=== PATIENT | female | born 1955 | race Caucasian/White ===

== ENCOUNTER 2024-01-10 10:59 | Emergency (ER) | payer MEDICARE, SELFPAY ==
[2024-01-10] VITALS (7 sets, daily range): BP systolic 114–145; BP diastolic 62–72; PULSE 79–101; RESP 12–20; TEMP 36.4–36.6; O2SAT 93–96
--- NOTE | ~2024-01-10 | XR_ITS ---
XR abdomen/kub 1V Ordering provider: Melo Ambrose MD History: . left 3mm stone, mid ureter . Comparison: None. FINDINGS: BOWEL: Nonobstructive bowel gas pattern. ORGANOMEGALY: None. Status post cholecystectomy. SIGNIFICANT PATHOLOGIC CALCIFICATIONS: None. OTHER: No free air is seen under the diaphragm. Degenerative spine. IMPRESSION: NO ACUTE ABDOMINAL FINDINGS. Reviewed, dictated and finalized at location A.
[2024-01-10 11:54] LABS: Basophils Absolute Auto 0.1 K/mm3 (0.0-0.1); Basophils Percent Auto 0.5 % (0.2-1.2); Eosinophils Absolute Auto 0.1 K/mm3 (0-0.3); Eosinophils Percent Auto 1.2 % (0-4.4); Hematocrit 37.9 % (37.0-47.0); Hemoglobin 12.3 g/dL (12.0-15.0); Immature Granulocyte Absolute 0.02 K/mm3 (0.00-0.031); Immature Granulocyte Percent A 0.2 % (0-0.5); Lymphocytes Absolute Auto 1.31 K/mm3 (0.9-3.2); Lymphocytes Percent Auto 11.9 % (18.3-44.2); Mean Corpuscular HGB Conc 32.5 g/dl (32-36); Mean Corpuscular Hemoglobin 29.4 pg (26-34); Mean Corpuscular Volume 90.5 fl (80-100); Mean Platelet Volume 10.5 fl (7.4-10.4); Monocytes Absolute Auto 1.3 K/mm3 (0.1-0.6); Monocytes Percent Auto 11.5 % (2.6-8.5); Neutrophils Absolute Auto 8.2 K/mm3 (1.3-6.7); Neutrophils Percent Auto 74.7 % (45.5-73.1); Platelet Count Result 214 k/mm3 (150-375); Red Blood Count 4.19 M/mm3 (4.2-5.4); Red Cell Distribution Width 15.2 % (11.5-14.5)
[2024-01-10 12:11] LABS: Anion Gap 7 mmol/L (4-12); Blood Urea Nitrogen 19 mg/dL (7-17); Calcium 8.9 mg/dL (8.4-10.2); Carbon Dioxide 26 mmol/L (22-30); Chloride 104 mmol/L (98-107); Estimated CRCL calculation 37 ml/min; Estimated Glomerular Filt Rate 37; Glucose 102 mg/dL (65-110); Sodium 137 mmol/L (137-145)
[2024-01-10] MEDS: ONDANSETRON INJ 4 MG/2 ML VIAL IV PUSH (12:46)
[2024-01-10] MEDS: SODIUM CHLORIDE 0.9% IV 1,000 ML 999 ML IV CONT (12:46)
[2024-01-10] MEDS: KETOROLAC 30 MG/ML VIAL (*BKC) 15 MG IV PUSH (12:46)
--- NOTE | 2024-01-10 13:04 | ED.GENADULT ---
HPI - General Adult General Chief complaint: Urogenital-Female Stated complaint: kidney stone Time Seen by Provider: 01/10/24 11:18 History of Present Illness HPI narrative: Patient is a 69-year-old female who presents ER with reports of left-sided flank pain. Was diagnosed with a kidney stone at [facility] yesterday. She is prescribed oxycodone and Flomax. It was 3 mm mid ureter. There is no urologist at that hospital and she was told come here to seek urologic evaluation. Patient endorses fever that began last night. No dysuria. Pain currently 11/27. Related Data Home Medications Medication Instructions Recorded Confirmed apixaban 5 mg tablet (Eliquis) 5 mg PO BID 01/05/22 01/26/22 azathioprine 50 mg tablet 50 mg PO DAILY 01/05/22 01/26/22 fluoxetine 40 mg capsule 80 mg PO BID 01/05/22 01/26/22 loratadine 10 mg tablet (Claritin) 10 mg PO DAILY 01/05/22 01/26/22 nebivolol 2.5 mg tablet 2.5 mg PO DAILY 01/05/22 01/26/22 pantoprazole 40 mg tablet,delayed 40 mg PO QAM 01/05/22 01/26/22 release ranolazine 1,000 mg 1,000 mg PO Q12H 01/05/22 01/26/22 tablet,extended release,12 hr rosuvastatin 10 mg tablet (Crestor) 10 mg PO DAILY 01/05/22 01/26/22 tocilizumab 162 mg/0.9 mL 162 mg subcut WEEKLY 01/05/22 01/26/22 subcutaneous pen injector (Actemra ACTPen) Allergies Allergy/AdvReac Type Severity Reaction Status Date / Time No Known Allergies Allergy Mild Verified 03/02/22 11:08 Review of Systems Review of Systems: All systems reviewed & are unremarkable except as noted in HPI and below Constitutional: Constitutional: Reports no additional constitutional complaints Cardiovascular: Cardiovascular: Reports no additional cardiovascular complaints Respiratory: Respiratory: Reports no additional respiratory complaints Gastrointestinal: Gastrointestinal: Reports no additional gastrointestinal complaints Genitourinary: Genitourinary: Reports no additional female genitourinary complaints [facility] Past Medical History Medical History Allergies Anxiety Arthritis Crohn's disease History of gonorrhea History of one miscarriage Osteoporosis Surgical History Surgical History History of cholecystectomy S/P appendectomy S/P conization of cervix S/P shoulder surgery Tubal ligation status Family History Family History Other Cerebrovascular accident Cervical cancer Depression Heart disease Hypertension Social History Social History Smoking status: Former smoker Smoking end date: 03/20/00 Alcohol intake: current Substance use: never Substance use type: does not use Exam Narrative: GENERAL: Well-appearing, well-nourished, and in no acute distress. HEAD: Normocephalic, atraumatic. ENT: Mucous membranes moist. CHEST: Clear to auscultation. No respiratory distress. HEART: Regular rate and rhythm. Normal peripheral pulses. ABDOMEN: Soft, nontender, nondistended. EXTREMITIES: Normal range of motion. No edema. SKIN: Warm, dry, no rash. NEURO: Alert and oriented x3. PSYCH: Normal mood and affect. Course Course Emergency Course: Discussed with urology. Outside hospital creatinine 1.16, slightly elevated today but patient hydrated. Unable to see on KUB. Urine without infection. Follow-up with clinic outpatient. Return if worsening pain. Vital Signs Vital signs: Vital Signs Temperature 97.6 F 01/10/24 11:01 Pulse Rate 84 01/10/24 11:01 Respiratory Rate 18 01/10/24 11:01 Blood Pressure 145/62 H 01/10/24 11:01 Pulse Oximetry 96 01/10/24 11:01 Oxygen Delivery Room Air 01/10/24 11:01 Temperature 97.6 F 01/10/24 11:01 Pulse Rate 93 01/10/24 12:52 Respiratory Rate 13 01/10/24 12:52 Blood Pressure 114/72 01/10/24 12:52 Pulse Oximetry 93 01/10/24 12:52 Oxygen Delivery Room Air 01/10/24 11:01 Medical Decision Making Vital Signs Vital Signs: Vital Signs Temperature 97.6 F 01/10/24 11:01 Pulse Rate 84 01/10/24 11:01 Respiratory Rate 18 01/10/24 11:01 Blood Pressure 145/62 H 01/10/24 11:01 Pulse Oximetry 96 01/10/24 11:01 Oxygen Delivery Room Air 01/10/24 11:01 Temperature 97.6 F 01/10/24 11:01 Pulse Rate 93 01/10/24 12:52 Respiratory Rate 13 01/10/24 12:52 Blood Pressure 114/72 01/10/24 12:52 Pulse Oximetry 93 01/10/24 12:52 Oxygen Delivery Room Air 01/10/24 11:01 Lab Data 01/10/24 11:48 01/10/24 11:48 Labs: Lab Results 01/10/24 01/10/24 Range/Units 11:48 13:41 WBC 11.0 H (4.5-10.0) K/mm3 RBC 4.19 L (4.2-5.4) M/mm3 Hgb 12.3 (12.0-15.0) g/dL Hct 37.9 (37.0-47.0) % MCV 90.5 (80-100) fl MCH 29.4 (26-34) pg MCHC 32.5 (32-36) g/dl RDW 15.2 H (11.5-14.5) % Plt Count 214 (150-375) k/mm3 MPV 10.5 H (7.4-10.4) fl Immature Gran % (Auto) 0.2 (0-0.5) % Neut % (Auto) 74.7 H (45.5-73.1) % Lymph % (Auto) 11.9 L (18.3-44.2) % [place] % (Auto) 11.5 H (2.6-8.5) % Eos % (Auto) 1.2 (0-4.4) % Baso % (Auto) 0.5 (0.2-1.2) % Lymph # (Auto) 1.31 (0.9-3.2) K/mm3 [place] # (Auto) 1.3 H (0.1-0.6) K/mm3 Eos # (Auto) 0.1 (0-0.3) K/mm3 Baso # (Auto) 0.1 (0.0-0.1) K/mm3 Abs Immat Gran (auto) 0.02 (0.00-0.031) K/mm3 Absolute Neuts (auto) 8.2 H (1.3-6.7) K/mm3 Absolute Nucleated RBC 0.000 (0.0-0.012) K/mm3 Nucleated RBC % 0.0 (0.0-0.2) % Sodium 137 (137-145) mmol/L Potassium 4.0 (3.4-5.0) mmol/L Chloride 104 (98-107) mmol/L Carbon Dioxide 26 (22-30) mmol/L Anion Gap 7 (4-12) mmol/L BUN 19 H (7-17) mg/dL Creatinine 1.40 H (0.7-1.0) mg/dL Estim Creat Clear Calc 37 ml/min Estimated GFR 37 L (59 - ) Glucose 102 (65-110) mg/dL Calcium 8.9 (8.4-10.2) mg/dL Urine Color Yellow (Yellow) Urine Appearance Clear (Clear) Urine pH 7.0 (5.0-9.0) Ur Specific [place] 1.011 (1.001-1.035) Urine Protein Trace (Negative) mg/dL Urine Glucose (UA) Negative (Negative) mg/dL Urine Ketones Negative (Negative) mg/dL Ur Blood (Man) 3+ H (Negative) Urine Nitrate Negative (Negative) Urine Bilirubin Negative (Negative) Urine Urobilinogen 0.2 (<2.0) mg/dL Leukocyte Esterase Rfl Trace H (Negative) COSTA/UL Urine RBC >100 H (0-2) /hpf Urine WBC 0-5 (0-3) /hpf Ur Squamous Epith Cells None seen (Few) /hpf Urine Bacteria None seen /hpf Urine Casts 0-2 Discharge Plan Discharge Clinical Impression: Ureterolithiasis Patient Disposition: Home, Self-Care Condition: Stable Instructions: Kidney Stones (ED) Additional Instructions: Return to the emergency department if you develop severe abdominal pain, severe nausea and vomiting to the point where you are unable to keep down fluids, if you develop chest pain or difficulty breathing, blood in your stool, dizziness or fainting, or if you develop any other new or concerning symptoms as these could be signs of more serious medical illness. Try to stay well hydrated. Prescriptions: New ondansetron 4 mg tablet,disintegrating 4 mg PO Q6H PRN (Reason: nausea and vomiting) Qty: 10 0RF No Action fluoxetine 40 mg capsule 80 mg PO BID Rx Instructions: administer in the morning and at noon/midday ranolazine 1,000 mg tablet extended release 12 hr 1,000 mg PO Q12H nebivolol 2.5 mg tablet 2.5 mg PO DAILY azathioprine 50 mg tablet 50 mg PO DAILY Eliquis 5 mg tablet 5 mg PO BID pantoprazole 40 mg tablet,delayed release (DR/EC) 40 mg PO QAM rosuvastatin [Crestor] 10 mg tablet 10 mg PO DAILY loratadine [Claritin] 10 mg tablet 10 mg PO DAILY Actemra ACTPen 162 mg/0.9 mL pen injector 162 mg subcut WEEKLY Follow-up/Referrals: Amelia Conrad MD [Physician] - 1 Week Allie Mckenzie MD [Primary Care Provider] -
[2024-01-10 13:49] LABS: Add Urine Microscopic? YES; Appearance Urine Clear (Clear); Bacteria Urine None Seen /hpf; Bilirubin Urine Negative (Negative); Blood Urine 3+ (Negative); Color Urine Yellow (Yellow); Glucose Urine UA Negative (Negative); Ketones Urine Negative (Negative); Leukocyte Esterase Ur Trace LEU/UL (Negative); Nitrate Urine Negative (Negative); Non Pathogenic Casts 0-2; Protein Urine Trace mg/dL (Negative); RBC Urine >100 /hpf (0-2); Specific Grav Ur 1.011 (1.001-1.035); Squamous Epithelial Cell Urine None Seen /hpf (Few); Urobilinogen Urine 0.2 mg/dL (<2.0); WBC Urine 0-5 /hpf (0-3)
== END 2024-01-10 16:35 | disposition home or self-care (01) ==
PROVIDERS: Emergency Provider Emergency Medicine; PCP Family Medicine
DX: N20.1 Calculus of ureter (principal); Z79.01 Long term (current) use of anticoagulants; K50.90 Crohn's disease, unspecified, without complications; M81.0 Age-related osteoporosis without current pathological fracture; F41.9 Anxiety disorder, unspecified
CPT/HCPCS: 36415; 74018; 80048; 81001; 85025; 96361; 96374; 96375; 99284; J1885; J2405; J7030

== ENCOUNTER 2024-01-24 13:49 | Outpatient (CLI) | payer MEDICARE, SELFPAY ==
--- NOTE | ~2024-01-24 | XR_ITS ---
XR abdomen/kub 1V Ordering provider: Amelia Conrad MD History: . HX KIDNEY STONE, LT SIDED PAIN . Comparison: None. FINDINGS: BOWEL: Nonobstructive bowel gas pattern. ORGANOMEGALY: None. SIGNIFICANT PATHOLOGIC CALCIFICATIONS: None. OTHER: No free air is seen under the diaphragm. Mild Levoscoliosis. IMPRESSION: NO ACUTE ABDOMINAL FINDINGS. Reviewed, dictated and finalized at location A. RMEDIATE DESIGNER
--- NOTE | ~2024-01-24 | CT_ITS ---
CLINICAL INDICATION: Hematuria COMPARISON: None. TECHNIQUE: Multiple contiguous axial images of the abdomen and pelvis were performed without the admi nistration of intravenous contrast The dose-length product (DLP) was 560.71 mGy-cm. Automated exposure control and iterative reconstruction technique were employed. FINDINGS/OBSERVATIONS: Visualized lower thorax: The bilateral lung bases are clear. The heart is of normal size, without pericardial effusion. Liver: The liver demonstrates homogeneous attenuation and is borderline enlarged measuring 19 cm in longitud inal dimension. Gallbladder and biliary system: The gallbladder is surgically absent. Pancreas: Limited evaluation of the pancreas secondary to the lack of intravenous contrast. Spleen: The spleen demonstrates homogeneous attenuation and is not enlarged measuring 5 cm in longitudinal di mension. Kidneys: The bilateral kidneys are unremarkable, without hydronephrosis or renal calculi. Adrenal glands: Unremarkable. Gastrointestinal tract: Colonic diverticulosis without surrounding inflammatory change. Fecal stasis within the colon. Appendix: The appendix is not definitively visualized. However, no pericecal inflammatory change is identified suggest the presence of acute appendicitis. Vasculature: Calcified atherosclerotic disease. Lymph nodes: No pathologically enlarged or morphologically suspicious lymph nodes within the retroperitoneum or at the root of the mesentery. Pelvic structures: The bladder is decompressed, limiting its evaluation. The uterus is atrophic or surgically absent. Body wall and musculoskeletal: Mild degenerative disease within the lower thoracic and lumbosacral spine. IMPRESSION: No obstructive uropathy. Reviewed, dictated and finalized at location A. AGE LINE OPERATOR IMPRESSION: No obstructive uropathy.
== END 2024-01-24 13:50 | disposition home or self-care (01) ==
PROVIDERS: PCP Family Medicine; Visit Provider Urology
DX: N20.0 Calculus of kidney (principal); M51.34 Other intervertebral disc degeneration, thoracic region; M51.369 Other intervertebral disc degeneration, lumbar region without mention of lumbar back pain or lower extremity pain
CPT/HCPCS: 74018; 74176